=== PATIENT | male | born 1990 | race Caucasian/White ===

== ENCOUNTER 2016-03-12 19:43 | Emergency (ER) | payer BC ==
[2016-03-12] MEDS ORDERED: Benzonatate 100 MG CAP ONE (20:58)
[2016-03-12] MEDS ORDERED: AMOXicillin 250 MG CAP ONE (20:58)
[2016-03-12] MEDS ORDERED: Ondansetron ODT 4 MG TAB ONE (20:58)
--- NOTE | 2016-03-12 21:05 | ERRECORD ---
[facility] EMERGENCY RECORD HPI COUGH (20:43 LLDO) CHIEF COMPLAINT: Patient presents for evaluation of cough, productive of yellow sputum, Patient presents for evaluation of feverish, some sore throat. vomited once. HISTORIAN: History provided by patient. LOCATION: Symptoms are generalized. QUALITY: Denies tightness, Denies wheezing. SEVERITY: Maximum severity of symptoms mild, Currently symptoms are mild. TIME COURSE: Gradual onset of symptoms, Symptoms are worsening, are constant. ASSOCIATED WITH: Associated symptoms reviewed, Associated with fever, Associated with nausea, Associated with upper respiratory infection. EXACERBATED BY: Patient's condition exacerbated by deep breaths, Patient's condition exacerbated by exercise, Patient's condition exacerbated by lying flat. RELIEVED BY: Patient's condition relieved by nothing. ROS CONSTITUTIONAL: Historian reports fatigue, reports fever, reports malaise. (20:46 LLDO) EYES: Negative eye review of systems, Historian denies eye pain, denies eye redness, denies eye discharge. (20:50 LLDO) ENT: Historian reports sore throat. (20:46 LLDO) CARDIOVASCULAR: Historian reports dyspnea on exertion. (20:46 LLDO) RESPIRATORY: Historian reports cough, reports sputum. described as thick, yellow, Historian denies stridor, denies wheezing. (20:46 LLDO) GI: Historian reports anorexia, reports appetite changes, reports nausea, reports vomiting. (20:46 LLDO) MUSCULOSKELETAL: Historian reports myalgias. (20:46 LLDO) NEUROLOGIC: Negative neurologic review of systems, Historian denies confusion, denies focal weakness, denies mental status changes, denies sensory changes. (20:50 LLDO) HEMO/LYMPHATIC: Normal hematologic/lymphatic system review, Historian denies abnormal blood clotting, denies gum bleeding, denies petechiae. (20:50 LLDO) ALLERGIC/IMMUNOLOGIC: Normal allergy/immunologic system review, Historian denies eczema, denies environmental allergies, denies food allergies. (20:50 LLDO) PSYCHIATRIC: Negative psychiatric review of systems, Historian denies alcohol abuse, denies anxiety, denies depression, denies drug abuse, denies hallucinations. (20:50 LLDO) NOTES: All systems reviewed, negative except as described above. (20:46 LLDO) &a-1R&a+25V*p+0X*b4082J*c202B*c15G*c2P*p-0X&a-25V&a+1R Name: Jose Carvajal : 1990 M25 MedRec: [id number] AcctNum: [id number] Prepared: SatMar 12, 2016 21:18 by Interface Page 1 of 4 pMD [facility] EMERGENCY RECORD PAST MEDICAL HISTORY MEDICAL HISTORY: Flu vaccine up to date, Tetanus immunization up to date, Pneumococcal vaccine not up to date, Past medical history includes cardiac history, unspecified arrhythmia. (19:57 BGAL) MALE SURGICAL HISTORY: Patient has no surgical history. (19:57 BGAL) PSYCHIATRIC HISTORY: Psychiatric history includes, anxiety, bipolar disorder, depression, schizophrenia. (19:57 BGAL) SOCIAL HISTORY: Patient drinks socially, twice a month, Patient is a former drug user, abused cocaine, abused heroin, abused marijuana, abused methamphetamines, Lives, LIVES ON THE COUCH WITH THE FAMILY OF A COWORKER. (19:57 BGAL) NOTES: Nursing records reviewed, Agree with nursing records, Medication list reviewed. (20:50 LLDO) KNOWN ALLERGIES No Known Drug Allergies CURRENT MEDICATIONS (19:54 BGAL) None VITAL SIGNS (19:51 BGAL) VITAL SIGNS: BP: 153/95, Pulse: 101, Resp: 20, Temp: 98.5 (Oral), Pain: 8, O2 sat: 99 on Room Air, Time: 03/12/2016 19:51. PHYSICAL EXAM CONSTITUTIONAL: Vital Signs Reviewed, Patient afebrile, Pulse, tachycardic, 101, Blood pressure, BP IS ELEVATED, Respiratory rate normal, Normal pulse oximetry, Patient appears, uncomfortable, Patient appears, in mild pain distress, Patient alert and oriented to person, place and time, Nursing notes reviewed. (20:47 LLDO) HEAD: Head exam normal, Head exam included findings of head atraumatic, normocephalic. (20:50 LLDO) EYES: Eye exam normal, Eye exam included findings of eyelids normal to inspection, Pupils equally round and reactive to light, Extraocular muscles intact. (20:50 LLDO) ENT: Ear exam normal, Nose exam normal, Pharynx, injected bilaterally, Uvula exam normal. (20:47 LLDO) NECK: Neck exam included findings of normal range of motion, Trachea midline, Thyroid normal. (20:47 LLDO) RESPIRATORY CHEST: Respiratory exam included findings of no respiratory distress, No wheezing, Rales present, Chest exam included findings of chest movement symmetrical, Chest expansion equal, Tenderness, RALES MILD AND SCATTERED. (20:47 LLDO) CARDIOVASCULAR: Cardiovascular assessment normal, Cardiovascular &a-1R&a+25V*p+0X*r5291K*c202B*c15G*c2P*p-0X&a-25V&a+1R Name: Jose Carvajal : 1990 M25 MedRec: [id number] AcctNum: [id number] Prepared: SatMar 12, 2016 21:18 by Interface Page 2 of 4 pMD [facility] EMERGENCY RECORD exam included findings of heart rate regular rate and rhythm, Heart sounds normal. (20:50 LLDO) ABDOMEN MALE: Abdominal exam included findings of abdomen nontender, Bowel sounds, hyperactive, Liver normal, Spleen normal, no distension, no mass, no pulsatile masses, no peritoneal signs. (20:47 LLDO) BACK: Back exam normal, Back exam included findings of normal inspection, range of motion normal. (20:50 LLDO) UPPER EXTREMITY: Upper extremity exam normal, Upper extremity exam included findings of inspection normal, Range of motion normal. (20:50 LLDO) LOWER EXTREMITY: Lower extremity exam normal, Lower extremity exam included findings of inspection normal, Range of motion normal. (20:50 LLDO) NEURO: Neuro exam normal, Neuro exam findings include patient oriented to person, place and time, Speech normal, [place] coma scale 15. (20:50 LLDO) SKIN: Skin exam normal, Skin exam included findings of skin warm, dry, and normal in color, no rash. (20:50 LLDO) PSYCHIATRIC: Psychiatric exam normal, Psychiatric exam included findings of patient oriented to person place and time, Normal affect. (20:50 LLDO) MEDICATION ADMINISTRATION SUMMARY Drug Name: Vicky Swenson, Dose Ordered: 200 mg, Route: Oral, Status: Given, Time: 21:12 03/12/2016, Drug Name: amoxicillin, Dose Ordered: 500 mg, Route: Oral, Status: Given, Time: 21:06 03/12/2016, Drug Name: Zofran ODT, Dose Ordered: 8 mg, Route: Sublingual, Status: Given, Time: 21:02 03/12/2016, Detailed record available in Medication Service section. PROBLEM LIST No recorded problems DIAGNOSIS (20:52 LLDO) FINAL: PRIMARY: Acute bronchitis. PRESCRIPTION (20:55 LLDO) amoxicillin: CAPSULE (HARD, SOFT, ETC.) : 500 mg : ORAL : Quantity: 1 Unit: cap(s) Route: ORAL Schedule: 3 times a day Dispense: 30 May substitute. Refills: No Refills . NOTES: No Refills. naproxen: TABLET : 500 mg : ORAL : Quantity: 1 Unit: tab(s) Route: ORAL Schedule: once a day (at bedtime) Dispense: 30 May substitute. Refills: No Refills . NOTES: ^s=No Refills &a-1R&a+25V*p+0X*t7658V*c202B*c15G*c2P*p-0X&a-25V&a+1R Name: Jose Carvajal : 1990 M25 MedRec: [id number] AcctNum: [id number] Prepared: SatMar 12, 2016 21:18 by Interface Page 3 of 4 pMD [facility] EMERGENCY RECORD No Refills. Phenergan DM: SYRUP : : ORAL : Quantity: 1-2 Unit: teaspoon Route: ORAL Schedule: every 4 hours prn Dispense: 180 Unit: mL May substitute. Refills: No Refills . NOTES: ^s=^s=No Refills No Refills No Refills. DISPOSITION PATIENT: Disposition Type: Discharge, Disposition: *Discharge Home. (20:52 LLDO) Patient left the department. (21:13 BGAL) Menendez: BGAL=IRMA Garcia, Chayo LLDO=MD Elfego, Arcenio &a-1R&a+25V*p+0X*d8441R*c202B*c15G*c2P*p-0X&a-25V&a+1R Name: Jose Carvajal Shanell : 1990 M25 MedRec: [id number] AcctNum: [id number] Prepared: Norberto Mar 12, 2016 21:18 by Interface Page 4 of 4 pMD MTDD
--- NOTE | 2016-03-12 21:09 | PICIS ---
[facility] EMERGENCY RECORD TRIAGE (19:54 BGAL) TRIAGE NOTES: PATIENT REPORTS FEVER X SEVERAL DAYS AND FEELING ILL SINCE GETTING THE FLU SHOT LAST MONTH. POOR HISTORIAN. REPORTS STOMACH PAIN THAT STARTED TODAY AND VOMITING X 1 TIME AT WORK. (19:54 BGAL) PATIENT: NAME: Jose Carvajal, AGE: 25, GENDER: male, : Sat1990, TIME OF GREET: SatMar 12, 2016 19:43, PREFERRED LANGUAGE: Lithuanian, ETHNICITY: Not or , ECODE BILLING MAP: [facility], SSN: [id number], KG WEIGHT: 86.18, , , PERSON ID: [id number], PCP: NONE. (19:54 BGAL) PHONE: . (20:40) Zip Code: [id number]. (20:40) COMPLAINT: FEVER. (19:54 BGAL) ADMISSION: URGENCY: 4 Non Urgent, ADMISSION SOURCE: Home, TRANSPORT: CAR, BED: ED -05. (19:54 BGAL) IMMUNIZATIONS: Flu vaccine up to date, Tetanus immunization up to date, Pneumococcal vaccine not up to date. (19:57 BGAL) SIRS SCORING: Heart Rate 55-109 (0), Temp range 96.8-101.1 (0), respiratory rate 12-24 (0), Mental Status altered: no (0), Infection or Suspected Infection: No. (19:57 BGAL) TRIAGE SCREENING: Patient denies suicidal ideation, Patient denies presence of domestic violence. (19:57 BGAL) PROVIDERS: TRIAGE NURSE: Chayo Garcia RN. (19:54 BGAL) VITAL SIGNS: BP 153/95, Pulse 101, Resp 20, Temp 98.5, (Oral), Pain 8, O2 Sat 99, on Room Air, Time 03/12/2016 19:51. (19:51 BGAL) KNOWN ALLERGIES No Known Drug Allergies CURRENT MEDICATIONS (19:54 BGAL) None VITAL SIGNS (19:51 BGAL) VITAL SIGNS: BP: 153/95, Pulse: 101, Resp: 20, Temp: 98.5 (Oral), Pain: 8, O2 sat: 99 on Room Air, Time: 03/12/2016 19:51. NURSING ASSESSMENT: RESPIRATORY /CHEST (20:47 BGAL) CONSTITUTIONAL: Patient arrives ambulatory, Gait steady, History obtained from patient, Patient appears comfortable, Patient cooperative, Patient alert, Oriented to person, place and time, Skin warm, Skin dry, Skin normal in color, Mucous membranes pink, Mucous membranes moist, Patient complains of fever. PAIN: aching pain, entire body pain, on a scale 0-10 patient rates pain as 8, Pain exacerbated by nothing, Nothing has been tried to alleviate the pain. RESPIRATORY/CHEST: Breath sounds clear, Respiratory assessment findings include respiratory effort easy, Respirations regular, Conversing normally, Neck and chest exam findings include trachea midline, Chest expansion equal, Chest movement symmetrical, no signs &a-1R&a+25V*p+0X*v6996T*c202B*c15G*c2P*p-0X&a-25V&a+1R Name: Jose Carvajal : 1990 M25 MedRec: [id number] AcctNum: [id number] Prepared: SatMar 12, 2016 21:18 by Interface Page 1 of 6 pMD [facility] EMERGENCY RECORD of distress, no retractions noted, no cyanosis, no jugular vein distension, no tenderness to palpation. ENT: Ear assessment findings include ear normal to inspection, Nasal assessment findings include nose normal to inspection, Sinuses normal, Nasal mucosa normal, Mouth and throat assessment findings include mouth inspection normal, Uvula normal, Tonsils normal, Mucous membranes pink, and moist, Able to swallow, Speech normal, Associated with fever, Maximum temperature (degree F) tactile only. SAFETY: Side rails up, Cart/Stretcher in lowest position, Family at bedside, Call light within reach, Hospital ID band on. NURSING PROCEDURE: DISCHARGE NOTE (21:11 BGAL) DISCHARGE: Patient discharged to home, ambulating without assistance, driving self, unaccompanied, Summary of Care printed/ provided, Patient requested and was provided an electronic copy of Discharge Instructions, Transition record given to patient, Discharge instructions given to patient, Simple or moderate discharge teaching performed, Prescriptions given and instructions on side effects given, Medication reconciliation form given, Above person(s) verbalized understanding of discharge instructions and follow-up care. BELONGINGS: Belongings remain with patient, Valuables remain with patient. MEDICATION ADMINISTRATION SUMMARY Drug Name: Kristysalgreg Perles, Dose Ordered: 200 mg, Route: Oral, Status: Given, Time: 21:12 03/12/2016, Drug Name: amoxicillin, Dose Ordered: 500 mg, Route: Oral, Status: Given, Time: 21:06 03/12/2016, Drug Name: Zofran ODT, Dose Ordered: 8 mg, Route: Sublingual, Status: Given, Time: 21:02 03/12/2016, Detailed record available in Medication Service section. MEDICATION SERVICE amoxicillin: Order: amoxicillin (amoxicillin trihydrate) - Dose: 500 mg : Oral Schedule: Now Ordered by: Arcenio Telles MD Entered by: Arcenio Telles MD SatMar 12, 2016 20:54 , Acknowledged by: Chayo Garcia RN SatMar 12, 2016 20:57 Documented as given by: Chayo Garcia RN SatMar 12, 2016 21:06 Patient, Medication, Dose, Route and Time verified prior to administration. Amount given: 500 mg, Site: Medication administered P.O., Correct patient, time, route, dose and medication confirmed prior to administration, Patient advised of actions and side-effects prior to administration, Allergies confirmed and medications reviewed prior to administration, Patient in position of comfort, Side rails up, Cart &a-1R&a+25V*p+0X*c2245B*c202B*c15G*c2P*p-0X&a-25V&a+1R Name: Jose Carvajal : 1990 M25 MedRec: [id number] AcctNum: [id number] Prepared: SatMar 12, 2016 21:18 by Interface Page 2 of 6 pMD [facility] EMERGENCY RECORD in lowest position, Family at bedside. Vicky Swenson: Order: Kristysalgreg Perles (benzonatate) - Dose: 200 mg : Oral Schedule: Now Ordered by: Arcenio Telles MD Entered by: Arcenio Telles MD SatMar 12, 2016 20:54 , Acknowledged by: Chayo Garcia RN SatMar 12, 2016 20:57 Documented as given by: Chayo Garcia RN SatMar 12, 2016 21:12 Patient, Medication, Dose, Route and Time verified prior to administration. Amount given: 200 mg, Site: Medication administered P.O., Correct patient, time, route, dose and medication confirmed prior to administration, Patient advised of actions and side-effects prior to administration, Allergies confirmed and medications reviewed prior to administration, Patient in position of comfort, Side rails up, Cart in lowest position, Family at bedside. Zofran ODT: Order: Zofran ODT (ondansetron) - Dose: 8 mg : Sublingual Schedule: Now Ordered by: Arcenio Telles MD Entered by: Arcenio Telles MD SatMar 12, 2016 20:54 , Acknowledged by: Chayo Garcia RN SatMar 12, 2016 20:57 Documented as given by: Chayo Garcia RN SatMar 12, 2016 21:02 Patient, Medication, Dose, Route and Time verified prior to administration. Amount given: 8 mg, Site: Medication administered S.L., Correct patient, time, route, dose and medication confirmed prior to administration, Patient advised of actions and side-effects prior to administration, Allergies confirmed and medications reviewed prior to administration, Patient in position of comfort, Side rails up, Cart in lowest position, Family at bedside. HPI COUGH (20:43 LLDO) CHIEF COMPLAINT: Patient presents for evaluation of cough, productive of yellow sputum, Patient presents for evaluation of feverish, some sore throat. vomited once. HISTORIAN: History provided by patient. LOCATION: Symptoms are generalized. QUALITY: Denies tightness, Denies wheezing. SEVERITY: Maximum severity of symptoms mild, Currently symptoms are mild. TIME COURSE: Gradual onset of symptoms, Symptoms are worsening, are constant. ASSOCIATED WITH: Associated symptoms reviewed, Associated with fever, Associated with nausea, Associated with upper respiratory infection. EXACERBATED BY: Patient's condition exacerbated by deep breaths, Patient's condition exacerbated by exercise, Patient's condition exacerbated by lying flat. RELIEVED BY: Patient's condition relieved by nothing. &a-1R&a+25V*p+0X*b8785Q*c202B*c15G*c2P*p-0X&a-25V&a+1R Name: Jose Carvajal : 1990 M25 MedRec: [id number] AcctNum: [id number] Prepared: SatMar 12, 2016 21:18 by Interface Page 3 of 6 pMD [facility] EMERGENCY RECORD ROS CONSTITUTIONAL: Historian reports fatigue, reports fever, reports malaise. (20:46 LLDO) EYES: Negative eye review of systems, Historian denies eye pain, denies eye redness, denies eye discharge. (20:50 LLDO) ENT: Historian reports sore throat. (20:46 LLDO) CARDIOVASCULAR: Historian reports dyspnea on exertion. (20:46 LLDO) RESPIRATORY: Historian reports cough, reports sputum. described as thick, yellow, Historian denies stridor, denies wheezing. (20:46 LLDO) GI: Historian reports anorexia, reports appetite changes, reports nausea, reports vomiting. (20:46 LLDO) MUSCULOSKELETAL: Historian reports myalgias. (20:46 LLDO) NEUROLOGIC: Negative neurologic review of systems, Historian denies confusion, denies focal weakness, denies mental status changes, denies sensory changes. (20:50 LLDO) HEMO/LYMPHATIC: Normal hematologic/lymphatic system review, Historian denies abnormal blood clotting, denies gum bleeding, denies petechiae. (20:50 LLDO) ALLERGIC/IMMUNOLOGIC: Normal allergy/immunologic system review, Historian denies eczema, denies environmental allergies, denies food allergies. (20:50 LLDO) PSYCHIATRIC: Negative psychiatric review of systems, Historian denies alcohol abuse, denies anxiety, denies depression, denies drug abuse, denies hallucinations. (20:50 LLDO) NOTES: All systems reviewed, negative except as described above. (20:46 LLDO) PAST MEDICAL HISTORY MEDICAL HISTORY: Flu vaccine up to date, Tetanus immunization up to date, Pneumococcal vaccine not up to date, Past medical history includes cardiac history, unspecified arrhythmia. (19:57 BGAL) MALE SURGICAL HISTORY: Patient has no surgical history. (19:57 BGAL) PSYCHIATRIC HISTORY: Psychiatric history includes, anxiety, bipolar disorder, depression, schizophrenia. (19:57 BGAL) SOCIAL HISTORY: Patient drinks socially, twice a month, Patient is a former drug user, abused cocaine, abused heroin, abused marijuana, abused methamphetamines, Lives, LIVES ON THE COUCH WITH THE FAMILY OF A COWORKER. (19:57 BGAL) NOTES: Nursing records reviewed, Agree with nursing records, Medication list reviewed. (20:50 LLDO) &a-1R&a+25V*p+0X*f4990H*c202B*c15G*c2P*p-0X&a-25V&a+1R Name: Jose Carvajal : 1990 M25 MedRec: [id number] AcctNum: [id number] Prepared: SatMar 12, 2016 21:18 by Interface Page 4 of 6 pMD [facility] EMERGENCY RECORD PHYSICAL EXAM CONSTITUTIONAL: Vital Signs Reviewed, Patient afebrile, Pulse, tachycardic, 101, Blood pressure, BP IS ELEVATED, Respiratory rate normal, Normal pulse oximetry, Patient appears, uncomfortable, Patient appears, in mild pain distress, Patient alert and oriented to person, place and time, Nursing notes reviewed. (20:47 LLDO) HEAD: Head exam normal, Head exam included findings of head atraumatic, normocephalic. (20:50 LLDO) EYES: Eye exam normal, Eye exam included findings of eyelids normal to inspection, Pupils equally round and reactive to light, Extraocular muscles intact. (20:50 LLDO) ENT: Ear exam normal, Nose exam normal, Pharynx, injected bilaterally, Uvula exam normal. (20:47 LLDO) NECK: Neck exam included findings of normal range of motion, Trachea midline, Thyroid normal. (20:47 LLDO) RESPIRATORY CHEST: Respiratory exam included findings of no respiratory distress, No wheezing, Rales present, Chest exam included findings of chest movement symmetrical, Chest expansion equal, Tenderness, RALES MILD AND SCATTERED. (20:47 LLDO) CARDIOVASCULAR: Cardiovascular assessment normal, Cardiovascular exam included findings of heart rate regular rate and rhythm, Heart sounds normal. (20:50 LLDO) ABDOMEN MALE: Abdominal exam included findings of abdomen nontender, Bowel sounds, hyperactive, Liver normal, Spleen normal, no distension, no mass, no pulsatile masses, no peritoneal signs. (20:47 LLDO) BACK: Back exam normal, Back exam included findings of normal inspection, range of motion normal. (20:50 LLDO) UPPER EXTREMITY: Upper extremity exam normal, Upper extremity exam included findings of inspection normal, Range of motion normal. (20:50 LLDO) LOWER EXTREMITY: Lower extremity exam normal, Lower extremity exam included findings of inspection normal, Range of motion normal. (20:50 LLDO) NEURO: Neuro exam normal, Neuro exam findings include patient oriented to person, place and time, Speech normal, [place] coma scale 15. (20:50 LLDO) SKIN: Skin exam normal, Skin exam included findings of skin warm, dry, and normal in color, no rash. (20:50 LLDO) PSYCHIATRIC: Psychiatric exam normal, Psychiatric exam included findings of patient oriented to person place and time, Normal affect. (20:50 LLDO) EVENTS TRANSFER: Triage to Emergency Main ED -05. (SatMar 12, 2016 19:54 BGAL) Removed from Emergency Main ED -05. (21:13 BGAL) &a-1R&a+25V*p+0X*g5093B*c202B*c15G*c2P*p-0X&a-25V&a+1R Name: Jose Carvajal : 1990 M25 MedRec: [id number] AcctNum: [id number] Prepared: SatMar 12, 2016 21:18 by Interface Page 5 of 6 pMD [facility] EMERGENCY RECORD PROBLEM LIST No recorded problems DIAGNOSIS (20:52 LLDO) FINAL: PRIMARY: Acute bronchitis. DISPOSITION PATIENT: Disposition Type: Discharge, Disposition: *Discharge Home. (20:52 LLDO) Patient left the department. (21:13 BGAL) INSTRUCTION (20:56 LLDO) DISCHARGE: BRONCHITIS, ABX [place] (ADULT). FOLLOWUP: Follow up with Primary Care Physician as needed. SPECIAL: Follow-up with your PCP. PRESCRIPTION (20:55 LLDO) amoxicillin: CAPSULE (HARD, SOFT, ETC.) : 500 mg : ORAL : Quantity: 1 Unit: cap(s) Route: ORAL Schedule: 3 times a day Dispense: 30 May substitute. Refills: No Refills . NOTES: No Refills. naproxen: TABLET : 500 mg : ORAL : Quantity: 1 Unit: tab(s) Route: ORAL Schedule: once a day (at bedtime) Dispense: 30 May substitute. Refills: No Refills . NOTES: ^s=No Refills No Refills. Phenergan DM: SYRUP : : ORAL : Quantity: 1-2 Unit: teaspoon Route: ORAL Schedule: every 4 hours prn Dispense: 180 Unit: mL May substitute. Refills: No Refills . NOTES: ^s=^s=No Refills No Refills No Refills. IMAGING (21:10 AGAN) *DISCHARGE INSTRUCTIONS RECEIPT: Image captured from scanner. *SUPPLY CHARGE SHEET: Image captured from scanner. ADMIN (20:58 FABRICIO) DIGITAL SIGNATURE: MD Telles Lloyd. Menendez: SAKSHI=IRMA Burnett, Aldair BGAL=IRMA Garcia, Chayo LLDO=MD Telles Lloyd &a-1R&a+25V*p+0X*v0414Z*c202B*c15G*c2P*p-0X&a-25V&a+1R Name: Jose Carvajal : 1990 M25 MedRec: [id number] AcctNum: [id number] Prepared: SatMar 12, 2016 21:18 by Interface Page 6 of 6 pMD [facility] MEDICATION RECONCILIATION You were seen in the Emergency Department on: SatMar 12, 2016 KNOWN ALLERGIES No Known Drug Allergies MEDICATIONS GIVEN WHILE IN THE EMERGENCY DEPARTMENT amoxicillin (amoxicillin trihydrate) - Dose: 500 milligram(s) : Oral Tessalon Perles (benzonatate) - Dose: 200 milligram(s) : Oral Zofran ODT (ondansetron) - Dose: 8 milligram(s) : Sublingual HOME MEDICATIONS None Notes from the emergency department Reviewed with family Reviewed with patient PRESCRIPTIONS (3) Printed (3) amoxicillin : CAPSULE (HARD, SOFT, ETC.) : 500 mg : ORAL Quantity: 1, Unit: cap(s), Route: ORAL, Schedule: 3 times a day, Dispense: 30 naproxen : TABLET : 500 mg : ORAL Quantity: 1, Unit: tab(s), Route: ORAL, Schedule: once a day (at bedtime), Dispense: 30 &a-1R&a+25V*p+0X*a9994G*c202B*c15G*c2P*p-0X&a-25V&a+1R Name: Jose Carvajal : 1990 M25 MedRec: [id number] AcctNum: [id number] Prepared: SatMar 12, 2016 21:18 by Interface Rola BUSH
== END 2016-03-12 21:05 | disposition home or self-care (01) ==
LOC: MADERS 19:43
DX: J20.9 Acute bronchitis, unspecified (principal); I49.9 Cardiac arrhythmia, unspecified; F41.9 Anxiety disorder, unspecified; F31.9 Bipolar disorder, unspecified
CPT/HCPCS: 99283; Q0162

== ENCOUNTER 2016-10-11 02:05 | Emergency (ER) | payer BC, SELFPAY | END 2016-10-11 02:58 | disposition home or self-care (01) | LOC: MADERS 02:05 | DX: S90.812A Abrasion, left foot, initial encounter (principal); L02.821 Furuncle of head [any part, except face]; F41.9 Anxiety disorder, unspecified; F31.9 Bipolar disorder, unspecified; F20.9 Schizophrenia, unspecified | CPT/HCPCS: 99283 ==